=== PATIENT | male | born 1970 | race Hispanic/Latino ===

== ENCOUNTER → 2025-03-06 | Outpatient (CLI) | payer OTHER ==
--- NOTE | 2025-03-08 05:40 | HMCIMG ---
EXAM: CR Right Hand, 2 views. CLINICAL HISTORY: Right-hand numbness and tingling. COMPARISON: None provided. FINDINGS: Mild osteopenia. Mild degenerative changes in the radiocarpal, intercarpal, first carpometacarpal, and interphalangeal joints. Calcification in the region of the triangular fibrocartilage. No acute fracture or aggressive appearing osseous lesion. No joint erosion. Mild diffuse soft tissue swelling is evident. IMPRESSION: No acute osseous abnormality. Mild osteopenia. Mild degenerative changes in the radiocarpal, intercarpal, first carpometacarpal, and interphalangeal joints. Calcification in the region of the triangular fibrocartilage. /Gregory
== END | disposition home or self-care (01) ==
LOC: RAH 15:02
PROVIDERS: ATTEND Internal Medicine
DX: M19.041 Primary osteoarthritis, right hand (principal); M25.841 Other specified joint disorders, right hand; M79.89 Other specified soft tissue disorders; M85.88 Other specified disorders of bone density and structure, other site; R20.2 Paresthesia of skin; R20.0 Anesthesia of skin
CPT/HCPCS: 73120